=== PATIENT | male | born 1995 | race Asian ===

== ENCOUNTER 2022-09-13 13:34 | Emergency (ER) | payer OTHER ==
[~2022-09-13] VITALS: Ht 160 cm; Wt 56.8 kg
[2022-09-13] MEDS ORDERED: OMEP20 PO (13:41)
[2022-09-13 15:35] LABS: BASOPHILS % (AUTO) 0.7 % (0.0-2.0); HEMATOCRIT 46.9 % (41-53); HEMOGLOBIN 15.8 g/dL (13.5-17.5); LYMPHOCYTES # (AUTO) 1.7 K/uL (1.0-4.8); LYMPHOCYTES % (AUTO) 28.5 % (22.0-44.0); MEAN CORPUSCULAR HEMOGLOBIN 31.8 pg (26.0-34.0); MEAN CORPUSCULAR HGB CONC 33.7 G/dL (31.0-37.0); MEAN CORPUSCULAR VOLUME 94 fL (80-100); MONOCYTES # (AUTO) 0.3 K/uL (0.1-1.0); NEUTROPHILS # (AUTO) 3.9 K/uL (1.8-7.7); NEUTROPHILS % (AUTO) 63.8 % (40.0-70.0); PLATELET COUNT (AUTO) 157 K/uL (150-450); RED BLOOD CELL COUNT(AUTO) 4.97 MIL/uL (4.50-5.90); RED CELL DISTRIBUTION WIDTH 12.5 % (11.5-14.5)
[2022-09-13 15:37] LABS: ANION GAP 11 mmol/L (8-16); CALCIUM, TOTAL 9.5 mg/dL (8.8-10.5); CARBON DIOXIDE 29 mmol/L (22-29); CHLORIDE 102 mmol/L (98-107); CREATININE 0.98 mg/dL (0.60-1.30); GLOMERULAR FILTR. RATE CALC > 60 mL/min (>60); GLUCOSE,RANDOM 87 mg/dL (70-110); POTASSIUM 3.8 mmol/L (3.5-5.1); SODIUM SERUM 142 mmol/L (136-145); UREA NITROGEN, BLOOD 18 mg/dL (7-18)
[2022-09-13 15:43] LABS: ALANINE AMINOTRANSFERASE 35 U/L (12-78); ALBUMIN 4.1 g/dL (3.4-5.0); ALKALINE PHOSPHATASE 99 U/L (46-116); ASPARTATE AMINOTRANSFERASE 26 U/L (15-37); BILIRUBIN,TOTAL 0.6 mg/dL (0.1-1.0); LIPASE 165 U/L (73-393); TOTAL PROTEIN, SERUM 8.1 g/dL (6.4-8.2)
[2022-09-13 16:13] VITALS: BP 127/75
== END 2022-09-13 16:33 | disposition home or self-care (01) ==
LOC: EMS 13:37
DX: R10.13 Epigastric pain (principal); Z88.8 Allergy status to other drugs, medicaments and biological substances
CPT/HCPCS: 74176; 80053; 83690; 85025; 99284

== ENCOUNTER 2023-02-22 14:33 | Emergency (ER) | payer OTHER ==
[~2023-02-22] VITALS: Ht 160 cm; Wt 58.2 kg
[~2023-02-22 14:33] MED LIST: OMEP20 PO
[2023-02-22 14:36] VITALS: TEMP 98.3
[2023-02-22] MEDS ORDERED: TENO25TA PO (14:36)
[2023-02-22] MEDS ORDERED: KETOROLAC TROMETHAMINE 30 MG/ML VIAL IVP ONE (15:30)
[2023-02-22] MEDS ORDERED: SODIUM CHLORIDE 0.9% 1,000 ML IV ONE (15:30)
[2023-02-22] MEDS ORDERED: DiphenhydrAMINE HCL 50 MG/ML VIAL IVP ONE (15:30)
[2023-02-22] MEDS ORDERED: METOCLOPRAMIDE HCL 5 MG/ML 2 ML VIAL IVP ONE (15:30)
[2023-02-22] MEDS ORDERED: IBUP-1492 PO (15:58)
[2023-02-22] MEDS ORDERED: CLOT15CR29 TP (15:58)
[2023-02-22 16:23] VITALS: BP 126/83; PULSE 79; RESP 16
== END 2023-02-22 17:09 | disposition home or self-care (01) ==
LOC: EMS 14:33
DX: R51.9 Headache, unspecified (principal); B37.89 Other sites of candidiasis; Z86.19 Personal history of other infectious and parasitic diseases
CPT/HCPCS: 99284; 96374; 96375; 96361; J1200; J1885; J2765; J7030

== ENCOUNTER 2023-08-25 14:25 | Emergency (ER) | payer OTHER ==
[~2023-08-25] VITALS: Ht 165.1 cm; Wt 70.5 kg
[~2023-08-25 14:25] MED LIST changes: +CLOT15CR29 TP; +IBUP-1492 PO; -OMEP20 PO; +TENO25TA PO
[2023-08-25 14:31] VITALS: BP 112/62; PULSE 88; RESP 18; TEMP 97.9
[2023-08-25] MEDS ORDERED: AMOX500C2 PO (14:48)
[2023-08-25] MEDS ORDERED: IBUP-1492 PO (14:48)
== END 2023-08-25 15:13 | disposition home or self-care (01) ==
LOC: EMS 14:37
DX: H66.93 Otitis media, unspecified, bilateral (principal); R51.9 Headache, unspecified; Z88.8 Allergy status to other drugs, medicaments and biological substances
CPT/HCPCS: 99283; Z7502